=== PATIENT | female | born 1990 | race Two or more races ===

== ENCOUNTER → 2019-09-30 | Outpatient (CLI) | payer OTHER ==
--- NOTE | 2019-09-30 17:15 | KCIC ---
Pelvic ultrasound dated 09/30/2019. No comparison available. CLINICAL INDICATION: Menorrhagia and infertility. FINDINGS: Transabdominal and transvaginal imaging performed. The uterus measures 7.8 x 4.1 x 4.8 cm. There is a 1.5 cm nodular focus in the anterior uterine corpora, likely a small fibroid. Endometrial complex is normal in thickness for age measuring approximately 2 mm. Right ovary measures 4.0 x 1.6 x 2.9 cm. Left ovary measures 2.6 x 2.6 x 2.0 cm. Normal color Doppler flow to both ovaries. There are small cysts or dominant follicles at the right ovary. Trace amount of free fluid at the right adnexa. IMPRESSION: 1. No acute sonographic abnormality. 2. Fibroid uterus. 3. Trace amount of free pelvic fluid, nonspecific. Electronically signed by: Davon Smith MD (09/30/2019 5:12 PM) [id number]
== END | disposition home or self-care (01) ==
LOC: KCIC US 15:32
PROVIDERS: ATTEND Obstetrics & Gynecology
DX: Z01.411 Encounter for gynecological examination (general) (routine) with abnormal findings (principal); D25.9 Leiomyoma of uterus, unspecified
CPT/HCPCS: 76830; 76856